=== PATIENT | female | born 2000 | race Two or more races ===

== ENCOUNTER 2024-12-01 04:31 | Emergency (ER) | payer MEDICAID ==
[~2024-12-01] VITALS: Ht 167.6 cm; Wt 139.0 kg
[2024-12-01 04:36] VITALS: O2SAT 99
[2024-12-01 04:47] VITALS: BP 98/53; PULSE 90; RESP 16; TEMP 36.9; O2SAT 99
[2024-12-01] MEDS: ACETAMINOPHEN 650MG/20.3ML UDC PO ONE (05:04)
== END 2024-12-01 05:55 | disposition home or self-care (01) ==
LOC: ER 04:31
DX: J02.8 Acute pharyngitis due to other specified organisms (principal); B97.89 Other viral agents as the cause of diseases classified elsewhere; J45.909 Unspecified asthma, uncomplicated; Z88.0 Allergy status to penicillin; Z90.89 Acquired absence of other organs
CPT/HCPCS: 87070; 87430; 99283